=== PATIENT | male | born 1950 | race Caucasian/White ===

== ENCOUNTER 2016-12-11 09:38 | Day surgery (SDC) | payer OTHER ==
[2016-12-10 10:23] VITALS: BMI 25.4
[~2016-12-11 09:38] MED LIST: LACTATED RINGERS 1,000 ML IV SCH
[2016-12-11] MEDS ORDERED: LIDOCAINE 1% 20 ML VIAL (10MG/ML) FOR IV START INTRADERMA ONE (10:27)
[2016-12-11 10:32] VITALS: RESP 16; TEMP 98.8
[2016-12-11] MEDS ORDERED: PROPOFOL 10 MG/ML 20 ML VIAL IV ONE (10:59)
--- NOTE | 2016-12-11 11:16 | P.PCN ---
Date of Procedure: 12/11/16 Procedure(s) Performed: PREOPERATIVE DIAGNOSIS: Change in bowel habits POSTOPERATIVE DIAGNOSIS: Extensive diverticulosis PROCEDURE: Colonoscopy ANESTHESIA: MAC SURGEON: Dano Burns M.D. SPECIMENS: None ENDOSCOPIC PROCEDURE: The patient was placed on the endoscopy table in the left decubitus position. The Olympus colonoscope was inserted into the anus and passed under direct visualization to the base of the cecum. The appendiceal orifice was visualized. From that point the scope was slowly withdrawn inspecting all surfaces carefully. There were no neoplastic inflammatory or polypoid lesions throughout the cecum, ascending, transverse, descending, sigmoid and rectum. There was extensive diverticulosis noted throughout the colon. Digital rectal examination was normal. The patient was taken to the recovery room in stable condition per anesthesia guidelines. RECOMMENDATIONS: Increase fiber. Follow-up colonoscopy in 10 years.
[2016-12-11 11:19] VITALS: PULSE 79
[2016-12-11 11:35] VITALS: BP 111/73
== END 2016-12-11 12:08 | disposition home or self-care (01) ==
LOC: ORWHC2ENDO 09:38
PROVIDERS: ATTEND Surgery
DX: K57.30 Diverticulosis of large intestine without perforation or abscess without bleeding (principal); R19.4 Change in bowel habit; K42.0 Umbilical hernia with obstruction, without gangrene; Z80.0 Family history of malignant neoplasm of digestive organs; Z79.2 Long term (current) use of antibiotics; Z79.82 Long term (current) use of aspirin
CPT/HCPCS: 45378; J2704

== ENCOUNTER → 2018-06-15 | Outpatient (CLI) | payer MEDICARE ==
--- NOTE | 2018-06-15 09:33 | MR ---
EXAMINATION TYPE: MR knee RT wo con DATE OF EXAM: 06/15/2018 COMPARISON: NONE HISTORY: Pain and locking for months with history of prior surgery per patient. Lateral meniscus tear per order. TECHNIQUE: Multiplanar, multisequence images of the knee is performed without IV contrast. FINDINGS: MEDIAL MENISCUS: Anterior horn is intact without tear. Posterior horn shows globular increased signal , does not definitively extend to articular surface. LATERAL MENISCUS: Anterior and posterior horns are intact without tear. CRUCIATE LIGAMENTS: The anterior and posterior cruciate ligaments are intact and unremarkable. COLLATERAL LIGAMENTS: The medial collateral ligament and lateral collateral ligament complex are inta ct and unremarkable. EXTENSOR MECHANISM: Visualized quadriceps and patellar tendons are intact. There is increased signal and thickening of the distal quadriceps tendon. Few fibers anteriorly remain intact. EFFUSION: No significant suprapatellar joint effusion. POPLITEAL CYST: No popliteal/baez cyst. TRICOMPARTMENT SPACES: There is moderate to severe patellofemoral joint space narrowing with moderate spurring. There is mild narrowing and spurring lateral and medial tibiofemoral compartments. CARTILAGE :: There is significant chondromalacia patella with thinning of articular cartilage along p osterior patellar pole, there are are areas of full-thickness fissuring and loss is prominent mediall y. Some areas of T2 hyperintensity are seen scattered throughout the posterior aspect of patellar boris e most prominent along the superior aspect. Lateral tibiofemoral compartment shows articular surface area of low T1 and T2 signal measuring 8 mm transversely by 10 mm AP diameter posterior aspect distal lateral femoral condyle. There are addition al areas of low T1 and increased T2 signal articular surface posterior aspect distal medial femoral c ondyle seen best sagittal images 9 through 12. Other: No additional significant abnormality is appreciated. IMPRESSION: 1. 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 No lateral meniscal tear is evident . 2. 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 Significant full-thicknes s chondromalacia patella is noted. 3. Additional areas of osteochondral injury with less prominent degenerative changes involving distal femur lateral and medial tibiofemoral compartments. 4. Partial tear/tendinosis of the distal quadriceps tendon.
== END | disposition home or self-care (01) ==
LOC: RADMRIMAIN 08:14
PROVIDERS: ATTEND Orthopaedic Surgery Adult Reconstructive Orthopaedic Surgery
DX: M17.11 Unilateral primary osteoarthritis, right knee (principal); M22.41 Chondromalacia patellae, right knee; M23.321 Other meniscus derangements, posterior horn of medial meniscus, right knee

== ENCOUNTER → 2020-12-22 | Outpatient (CLI) | payer MEDICARE ==
--- NOTE | 2020-12-22 09:06 | US ---
EXAMINATION TYPE: US kidneys/renal and bladder DATE OF EXAM: 12/22/2020 COMPARISON: NONE CLINICAL HISTORY: R97.20 elevated PSA levels. hematuria EXAM MEASUREMENTS: Right Kidney: 9.6 x 5.1 x 5.6 cm Left Kidney: 10.8 x 5.4 x 5.2 cm Right Kidney: No hydronephrosis or masses seen Left Kidney: No hydronephrosis or masses seen Bladder: wnl Bilateral Jets seen: No There is no evidence for hydronephrosis at this point in time. No nephrolithiasis is seen. No amanda s are identified. The urinary bladder is anechoic. IMPRESSION: No distinct abnormality.
== END | disposition home or self-care (01) ==
LOC: RADUSWWP 08:31
PROVIDERS: ATTEND Urology
DX: R97.20 Elevated prostate specific antigen [PSA] (principal); R31.9 Hematuria, unspecified
CPT/HCPCS: 76770

== ENCOUNTER 2022-03-15 09:43 | Day surgery (SDC) | payer MEDICARE ==
[2022-03-14 13:38] VITALS: BMI 25.1
--- NOTE | 2022-03-15 07:39 | P.GSHP ---
History of Present Illness H&P Date: 03/15/22 Chief Complaint: Umbilical hernia 71-year-old male here today for elective repair umbilical hernia. Patient states she has had this hernia for many years. It is increasing in size and causes more discomfort lately. No change in bowel habits. No nausea or vomiting. Past Medical History Additional Past Medical History / Comment(s): umbilical hernia, on 03-12-22 had Lexiscan stress test w/ [facility] r/t father's hx of [place] History of Any Multi-Drug Resistant Organisms: None Reported Past Surgical History: Orthopedic Surgery Additional Past Surgical History / Comment(s): LT KNEE SURG. TATE ACHILLES REPAIR. CTR RT WRIST. COLONOSCOPY. Past Anesthesia/Blood Transfusion Reactions: No Reported Reaction Additional Past Anesthesia/Blood Transfusion Reaction / Comment(s): no hx blood transfusion Smoking Status: Never smoker - Past Family History Father Family Medical History: Myocardial Infarction (NH) Additional Family Medical History / Comment(s): at age 42 Medications and Allergies Home Medications Medication Instructions Recorded Confirmed Type Aspirin [Adult Low Dose Aspirin EC] 81 mg PO DAILY 12/10/16 03/14/22 History Allergies Allergy/AdvReac Type Severity Reaction Status Date / Time No Known Allergies Allergy Verified 03/14/22 13:08 Surgical - Exam Physical exam: General: Well-developed, well-nourished HEENT: Normocephalic, sclerae nonicteric Abdomen: Nontender, nondistended, small incarcerated umbilical hernia Extremities: No edema Neuro: Alert and oriented Assessment and Plan (1) Umbilical hernia Narrative/Plan: 71-year-old male with incarcerated umbilical hernia. We'll proceed with open repair with possible mesh at this time. Risks of bleeding, infection, recurrence, bladder and bowel injury, numbness, nerve injury were discussed with the patient. The patient understands and wishes to proceed. Status: Acute Code(s): K42.9 - UMBILICAL HERNIA WITHOUT OBSTRUCTION OR GANGRENE SNOMED Code(s): 992304874
[~2022-03-15 09:43] MED LIST changes: +ACETAMINOPHEN TAB 500 MG TAB PO PRN; +DEXAMETHASONE SOD PHOSPHATE 4 MG/ML 1 ML VIAL IV ONE; +HEPARIN SODIUM,PORCINE/PF 5,000 UNIT/0.5 ML SYRINGE SQ PRN; +HYDROmorphone 0.5 MG/0.5 ML SYRINGE IVP PRN; +MIDAZOLAM 2 MG/2 ML VIAL IV PRN; +ONDANSETRON 4 MG/2 ML VIAL IVP ONE
[2022-03-15 10:17] VITALS: RESP 16
[2022-03-15 10:19] LABS: Glucose,Whole Blood 84 mg/dL (70-110)
[2022-03-15 10:25] LABS: Basophils # (A) 0.1 k/uL (0-0.2); Basophils % (A) 1 %; Eosinophils # (A) 0.9 k/uL (0-0.7); Eosinophils % (A) 13 %; HCT 47.7 % (39.0-53.0); HGB 16.6 gm/dL (13.0-17.5); Lymphocytes # (A) 0.6 k/uL (1.0-4.8); Lymphocytes % (A) 9 %; MCH 31.2 pg (25.0-35.0); MCHC 34.7 g/dL (31.0-37.0); MCV 89.8 fL (80.0-100.0); Mean Platelet Volume 7.6; Monocytes # (A) 0.5 k/uL (0-1.0); Monocytes % (A) 8 %; Neutrophils # (A) 4.7 k/uL (1.3-7.7); Neutrophils % (A) 67 %; Platelet Count 204 k/uL (150-450); RBC 5.31 m/uL (4.30-5.90); WBC 6.9 k/uL (3.8-10.6)
[2022-03-15 10:38] LABS: Potassium 3.9 mmol/L (3.5-5.1)
[2022-03-15] MEDS ORDERED: GLYCOPYRROLATE 0.2 MG/ML 2 ML VIAL ONE (11:04)
[2022-03-15] MEDS ORDERED: SUCCINYLCHOLINE CHLORIDE 200 MG/10 ML VIAL IV ONE (11:04)
[2022-03-15] MEDS ORDERED: ROCURONIUM 10 MG/ML (5 ML VIAL) IV ONE (11:04)
[2022-03-15] MEDS ORDERED: LIDOCAINE 2% INJ 20 MG/ML (2 ML VIAL) ONE (11:04)
[2022-03-15] MEDS ORDERED: fentaNYL (PF) 50 MCG/ML 2 ML AMP ONE (11:04)
[2022-03-15] MEDS ORDERED: KETOROLAC 15 MG/ML 1 ML VIAL ONE (11:04)
[2022-03-15] MEDS ORDERED: PROPOFOL 10 MG/ML 20 ML VIAL IV ONE (11:04)
[2022-03-15] MEDS ORDERED: NEOSTIGMINE 1 MG/ML 10 ML VIAL ONE (11:04)
[2022-03-15] MEDS ORDERED: MIDAZOLAM 2 MG/2 ML VIAL ONE (11:04)
[2022-03-15] MEDS ORDERED: BUPIVACAINE (PF) 0.25% 30 ML VIAL SQ ONE (11:26)
[2022-03-15] MEDS ORDERED: LACTATED RINGERS 1,000 ML IV ONE (11:58)
[2022-03-15 12:04] VITALS: TEMP 98
--- NOTE | 2022-03-15 12:15 | P.OP ---
Date of Procedure: 03/15/22 Procedure(s) Performed: PREOPERATIVE DIAGNOSIS: Incarcerated umbilical hernia POSTOPERATIVE DIAGNOSIS: Same PROCEDURE: Open repair incarcerated umbilical hernia SURGEON: Dr. Burns ANESTHESIA: General OPERATIVE PROCEDURE DETAILS: The patient was placed in the operating table in the supine position. A curvilinear infraumbilical incision was made using the scalpel. The subcutaneous tissues were dissected bluntly and with cautery. The hernia sac was identified. The umbilical attachments to the fascia were divided using electrocautery. The hernia sac was excised. The defect in the fascia measured 12 x 6 mm. The fat overlying the fascia was dissected. No additional defects were seen. The defect was closed using interrupted [id number] Ethibond mattress sutures. The subcutaneous tissues were reapproximated using inverted 2-0 & 3-0 Vicryl sutures. The umbilicus was tacked back down to the fascia using a 2-0 Vicryl suture. The skin was closed using 4-0 Monocryl sutures. Skin glue and sterile dressings were then applied. PREOPERATIVE DISCUSSION ON SMOKING CESSASTION: Yes PREOPERATIVE DISCUSSION ON MORBID OBESITY: Yes PREOPERATIVE DISCUSSION ON APPROPRIATE USE OF NARCOTIC USE: Yes PREOPERATIVE EDUCATION: Multi Modal, Smoking Cessation and Weight Loss with BMI over 35. DISPOSITION: Stable to recovery room
[2022-03-15 13:37] VITALS: BP 124/78; PULSE 63
[2022-03-15] MEDS ORDERED: IBUPROFEN 600 MG TAB PO SCH (15:15)
[2022-03-15] MEDS ORDERED: ACETAMINOPHEN TAB 325 MG TAB PO SCH (17:15)
== END 2022-03-15 14:25 | disposition home or self-care (01) ==
LOC: OR 09:43
PROVIDERS: ATTEND Surgery
DX: K42.0 Umbilical hernia with obstruction, without gangrene (principal); F41.9 Anxiety disorder, unspecified; F32.A Depression, unspecified; Z98.890 Other specified postprocedural states; Z82.49 Family history of ischemic heart disease and other diseases of the circulatory system; Z79.82 Long term (current) use of aspirin; Z86.010 Personal history of colon polyps; Z79.2 Long term (current) use of antibiotics; Z80.0 Family history of malignant neoplasm of digestive organs
CPT/HCPCS: 49587; 80051; 85025; J2250; J0330; J1100; J2710; J0690; J2405; J3010; J1885; J2704; J1170; J1644; J2001; 88302